=== PATIENT | male | born 1990 | race African-American/Black ===

== ENCOUNTER 2016-10-14 06:36 | Emergency (ER) | payer MEDICAID ==
[2016-10-14 06:55] VITALS: BP 136/78
--- NOTE | 2016-10-14 08:25 | ER Document Report ---
ED GI/ - General Mode of Arrival: Ambulatory Information source: Patient TRAVEL OUTSIDE OF THE [place] IN LAST 30 DAYS: No - HPI Patient complains to provider of: Feeding tube problem Onset: This morning Associated symptoms: Other - see notes above - General Chief Complaint: Displaced G-tube Stated Complaint: GTUBE REMOVAL Time Seen by Provider: 10/14/16 08:15 Notes: 26 year old male presents to the ED accompanied by his home health nurses complaining of having difficulty changing out the patient's Gtube (size 18) earlier this morning. Nurses state that there was drainage around the Gtube which was exacerbated when the patient coughed. The nurse tried to remove saline from the Gtube balloon but was unable to do so. She proceeded to add 10 mLs of saline into the balloon to check for placement, but was unable to draw anything out so they came to the ED. Nurses state that the patient has no other symptoms. Primary care: Dr. Garsia ([facility]) - Related Data Allergies/Adverse Reactions: latex [Latex] Allergy (Verified 10/14/16 06:57) Tricyclic Compounds Allergy (Verified 10/14/16 06:57) Past Medical History - General Information source: Patient - Social History Smoking Status: Never Smoker Chew tobacco use (# tins/day): No Frequency of alcohol use: None Drug Abuse: None Family History: Other - unable to obtain, Pt is nonverbal Neurological Medical History: Reports: Hx Seizures GI Medical History: Reports: Hx Gastroesophageal Reflux Disease Past Surgical History: Reports: Hx Abdominal Surgery - G tube Review of Systems - Review of Systems Constitutional: No symptoms reported EENT: No symptoms reported Cardiovascular: No symptoms reported Respiratory: No symptoms reported Gastrointestinal: See HPI, Other - Drainage around the Gtube and difficulty removing Gtube Genitourinary: No symptoms reported Male Genitourinary: No symptoms reported Musculoskeletal: No symptoms reported Skin: No symptoms reported Hematologic/Lymphatic: No symptoms reported Neurological/Psychological: No symptoms reported -: Yes All other systems reviewed and negative Physical Exam - General General appearance: Alert In distress: None - HEENT Head: Normocephalic, Atraumatic Eyes: Normal Extraocular movements intact: Yes Pupils: PERRL - Respiratory Respiratory status: No respiratory distress Breath sounds: Normal - Cardiovascular Rhythm: Regular Heart sounds: Normal auscultation - Abdominal Inspection: Other - Gtube in place with no sign of drainage surrounding the tube. Distension: No distension Tenderness: Nontender - Back Back: Normal - Extremities General upper extremity: Normal inspection, Normal ROM General lower extremity: Normal inspection, Normal ROM - Neurological Neuro grossly intact: Yes Cognition: Normal Orientation: AAOx4 [place] Coma Scale Eye Opening: Spontaneous [place] Coma Scale Verbal: Oriented [place] Coma Scale Motor: Obeys Commands [place] Coma Scale Total: 15 Speech: Normal - Psychological Associated symptoms: Normal affect, Normal mood - Skin Skin Temperature: Warm Skin Moisture: Dry Skin Color: Normal Course - Consults Dr. Sanchez Time consulted: 10:00 - Re-evaluation Re-evalutation: 10/14/16 10:01 Presents emergency department caregivers at bedside state that they can get his feeding tube out. They said that they switch it over they were trying to get out and replace it because it was leaking around the feeding site. They said they were unsuccessful at getting it to come out. They have not had problems with it in the past. Otherwise he is getting food is just leaking there is no external signs of trauma tenderness guarding rebound fever vomiting or any other concerns from that standpoint x-ray shows it to be in proper placement. I contacted the on-call surgeon Dr. munoz who recommended I put 2 additional cc in the balloon and leave it as a nurse follow-up with a primary care physician he does not think it needs to be removed at this point. I discussed reasons for ED return sooner (LISA SANDOVAL) - Vital Signs Vital signs: Temp Pulse Resp BP Pulse Ox 97.5 F 70 20 136/78 H 97 10/14/16 06:57 10/14/16 06:57 10/14/16 06:57 10/14/16 06:57 10/14/16 06:57 - Consults Dr. Sanchez Reason for consultation: 10/14/16 10:00 Patient was discussed with Dr. Sanchez who states to add 2 cc of air to the balloon, leave it in place, and have the patient follow up with primary care. (FLAVIA GARSIA) Discharge - Discharge Clinical Impression: Gastrointestinal tube present Condition: Stable Disposition: HOME, SELF-CARE Additional Instructions: I have contacted our surgeon trial consultant. He does not recommend that I remove the tube at this point. He recommends they put additional 2 cc in the balloon and leave it as is. He states have them follow-up with primary care physician if there is any other complications he may be referred to surgery but does not want me to take the tube out today. Referrals: CARMINA CARDONA MD [Primary Care Provider] - (in 2-3 days) Scribe Attestation: 10/14/16 10:00 I personally performed the services described in the documentation reviewed the documentation recorded by my scribe in my presence and it accurately and completely records my words and actions (LISA SANDOVAL) Scribe Documentation - Scribe Written by Scribe:: Richard Barton, 10/14/2016 1033 acting as scribe for :: Bulmaro
--- NOTE | 2016-10-14 08:53 | RADIOLOGY REPORT (SQ) ---
EXAM DESCRIPTION: KUB/ABDOMEN (SINGLE VIEW) COMPLETED DATE/TIME: 10/14/2016 8:42 am REASON FOR STUDY: peg tube placement COMPARISON: 09/23/2014 NUMBER OF VIEWS: One view. TECHNIQUE: Supine radiographic image of the abdomen acquired. LIMITATIONS: None. FINDINGS: BOWEL GAS PATTERN: Normal bowel gas pattern. No dilated loops. CALCIFICATIONS: No suspicious calcifications. SOFT TISSUES: No gross mass or suggestion of organomegaly. HARDWARE: None in the abdomen. BONES: Stable chronic musculoskeletal changes. No acute fracture. No worrisome bone lesions. OTHER: Percutaneous gastrostomy tube in expected location of the stomach. IMPRESSION: NO RADIOGRAPHIC EVIDENCE FOR ACUTE ABDOMINAL DISEASE. PERCUTANEOUS GASTROSTOMY TUBE ANDREW EARS TO BE APPROPRIATELY POSITIONED. TECHNICAL DOCUMENTATION: JOB ID: [id number] [employer]- All Rights Reserved
== END 2016-10-14 10:08 | disposition home or self-care (01) ==
LOC: ER 06:36
DX: K94.20 Gastrostomy complication, unspecified (principal)
CPT/HCPCS: 74000; 99282

== ENCOUNTER → 2017-05-09 | Outpatient (CLI) | payer MEDICAID | LOC: CAR 07:40 | PROVIDERS: ATTEND Family Medicine | DX: G40.909 Epilepsy, unspecified, not intractable, without status epilepticus (principal); Z79.899 Other long term (current) drug therapy | CPT/HCPCS: 80156 ==

== ENCOUNTER → 2017-11-11 | Outpatient (CLI) | payer MEDICAID ==
[2017-11-11 14:33] LABS: ABSOLUTE BASOPHILS # (AUTO) 0.1 10^3/uL (0.0-0.2); ABSOLUTE EOSINOPHILS # (AUTO) 0.8 10^3/uL (0.0-0.6); ABSOLUTE LYMPHOCYTES (AUTO) 2.9 10^3/uL (0.5-4.7); ABSOLUTE MONOCYTES (AUTO) 0.4 10^3/uL (0.1-1.4); ABSOLUTE NEUT (AUTO) 1.8 10^3/uL (1.7-8.2); BASOPHILS % (AUTO) 1.2 % (0-2); EOSINOPHILS % (AUTO) 13.3 % (0-6); HEMATOCRIT 51.2 % (37.9-51.0); HEMOGLOBIN 17.3 g/dL (13.5-17.0); LYMPHOCYTES % (AUTO) 49.1 % (13-45); MEAN CORPUSCULAR HEMOGLOBIN 31.1 pg (27.0-33.4); MEAN CORPUSCULAR HGB CONC 33.8 g/dL (32.0-36.0); MEAN CORPUSCULAR VOLUME 92 fl (80-97); PLATELET COUNT 278 10^3/uL (150-450); RED BLOOD COUNT 5.56 10^6/uL (4.35-5.55); RED CELL DISTRIBUTION WIDTH 13.1 % (11.5-14.0); SEGMENTED NEUTROPHILS % (AUTO) 30.4 % (42-78); TOTAL CELLS COUNTED % (AUTO) 100 %; WHITE BLOOD COUNT 5.9 10^3/uL (4.0-10.5)
[2017-11-11 14:41] LABS: ALANINE AMINOTRANSFERASE 64 U/L (21-72); ALBUMIN 5.2 g/dL (3.5-5.0); ALKALINE PHOSPHATASE 179 U/L (38-126); ANION GAP 15 (5-19); ASPARTATE AMINO TRANSFERASE 41 U/L (17-59); BILIRUBIN,DIRECT 0.3 mg/dL (0.0-0.4); BILIRUBIN,TOTAL 0.3 mg/dL (0.2-1.3); BLOOD UREA NITROGEN 13 mg/dL (7-20); CALCIUM 10.7 mg/dL (8.4-10.2); CARBON DIOXIDE 30 mmol/L (22-30); CHLORIDE 101 mmol/L (98-107); CHOLESTEROL 204.82 mg/dL (0-200); GLUCOSE 77 mg/dL (75-110); POTASSIUM 4.8 mmol/L (3.6-5.0); SODIUM 146.4 mmol/L (137-145); TOTAL PROTEIN 10.5 g/dL (6.3-8.2); TRIGLYCERIDES 252 mg/dL (<150)
[2017-11-11 14:52] LABS: DIRECT LDL 43 mg/dL (<100)
[2017-11-11 14:56] LABS: VLDL CHOLESTEROL 50.4 mg/dL (10-31)
== END ==
LOC: CAR 12:43
PROVIDERS: ATTEND Family Medicine
DX: K21.9 Gastro-esophageal reflux disease without esophagitis (principal); K59.00 Constipation, unspecified; Z00.00 Encounter for general adult medical examination without abnormal findings; E55.9 Vitamin D deficiency, unspecified; Z79.899 Other long term (current) drug therapy; G40.909 Epilepsy, unspecified, not intractable, without status epilepticus
CPT/HCPCS: 80053; 80061; 80156; 82306; 84443; 85025

== ENCOUNTER → 2018-04-08 | Outpatient (CLI) | payer MEDICAID ==
[2018-04-08 13:15] LABS: ALANINE AMINOTRANSFERASE 63 U/L (21-72); ALBUMIN 4.1 g/dL (3.5-5.0); ALKALINE PHOSPHATASE 163 U/L (38-126); ANION GAP 11 (5-19); ASPARTATE AMINO TRANSFERASE 47 U/L (17-59); BILIRUBIN,DIRECT 0.3 mg/dL (0.0-0.4); BILIRUBIN,TOTAL 0.3 mg/dL (0.2-1.3); BLOOD UREA NITROGEN 9 mg/dL (7-20); CALCIUM 9.3 mg/dL (8.4-10.2); CARBON DIOXIDE 26 mmol/L (22-30); CHLORIDE 104 mmol/L (98-107); GLUCOSE 103 mg/dL (75-110); POTASSIUM 4.1 mmol/L (3.6-5.0); SODIUM 141.2 mmol/L (137-145)
== END ==
LOC: CAR 11:59
PROVIDERS: ATTEND Family Medicine
DX: K21.0 Gastro-esophageal reflux disease with esophagitis (principal); K59.00 Constipation, unspecified; G40.909 Epilepsy, unspecified, not intractable, without status epilepticus; Z79.899 Other long term (current) drug therapy
CPT/HCPCS: 80053

== ENCOUNTER → 2018-05-04 | Outpatient (CLI) | payer MEDICAID ==
[2018-05-04 14:55] LABS: ABSOLUTE EOSINOPHILS # (AUTO) 0.4 10^3/uL (0.0-0.6); ABSOLUTE LYMPHOCYTES (AUTO) 3.1 10^3/uL (0.5-4.7); ABSOLUTE MONOCYTES (AUTO) 0.6 10^3/uL (0.1-1.4); ABSOLUTE NEUT (AUTO) 3.4 10^3/uL (1.7-8.2); BASOPHILS % (AUTO) 0.6 % (0-2); EOSINOPHILS % (AUTO) 5.8 % (0-6); HEMATOCRIT 45.2 % (37.9-51.0); HEMOGLOBIN 15.4 g/dL (13.5-17.0); MEAN CORPUSCULAR HEMOGLOBIN 31.3 pg (27.0-33.4); MEAN CORPUSCULAR HGB CONC 34.1 g/dL (32.0-36.0); MEAN CORPUSCULAR VOLUME 92 fl (80-97); MONOCYTES % (AUTO) 7.5 % (3-13); PLATELET COUNT 325 10^3/uL (150-450); RED BLOOD COUNT 4.92 10^6/uL (4.35-5.55); RED CELL DISTRIBUTION WIDTH 12.8 % (11.5-14.0); SEGMENTED NEUTROPHILS % (AUTO) 45.1 % (42-78); TOTAL CELLS COUNTED % (AUTO) 100 %; WHITE BLOOD COUNT 7.5 10^3/uL (4.0-10.5)
== END ==
LOC: CAR 12:15
PROVIDERS: ATTEND Specialist
DX: G40.909 Epilepsy, unspecified, not intractable, without status epilepticus (principal); Z79.899 Other long term (current) drug therapy
CPT/HCPCS: 80156; 84295; 85025

== ENCOUNTER → 2019-01-12 | Outpatient (CLI) | payer MEDICAID | LOC: OD 11:46 | PROVIDERS: ATTEND Family Medicine | DX: R73.09 Other abnormal glucose (principal); Z53.8 Procedure and treatment not carried out for other reasons ==

== ENCOUNTER 2019-08-13 19:58 | Emergency (ER) | payer MEDICAID ==
--- NOTE | 2019-08-13 23:15 | RADIOLOGY REPORT (SQ) ---
CLINICAL INDICATION: cough. TECHNIQUE: A single portable AP view was obtained of the chest at 2255 hours. Additional repeat image COMPARISON: October 03, 2014. FINDINGS: The cardiomediastinal silhouette is enlarged but stable. The lungs are grossly clear. No evidence of effusion or pneumothorax. Chronic parenchymal lung change. Scoliosis.. IMPRESSION: No evidence of active intrathoracic disease. No adverse change when accounting for lower volume
--- NOTE | 2019-08-13 23:54 | ER Document Report ---
Entered by LORNA ALTAMIRANO SCRIBE 08/13/19 2218 Acting as scribe for:MISHA MARADIAGA IV, MD ED General - General Chief Complaint: Other Stated Complaint: UPPER RESPIRATORY SYMPTOMS,POSSIBLE EXPOSSURE Primary Care Provider: REJI LOVELL MD [Primary Care Provider] - Follow up as needed Mode of Arrival: Wheelchair Information source: Legal Guardian - Caregiver, Emergency Med Personnel Notes: This 28 year old male patient presents to the ED today accompanied by his caregiver with complaints of possible COVID-19 exposure. Caregiver states that one of the staff members that works in the house where the patient resides was recently tested for the virus. Caregiver reports that the patient has chronic respiratory issues that are worse with seasonal allergies, but denies any new or worsening respiratory symptoms other than chest congestion and sputum production. Caregiver states that the patient's PCP, Dr. Lovell, was initially going to prescribe Zyrtec and order a chest x-ray, flu swab, and CBC; however, he advised the patient to come to the ED to get tested for COVID-19 once he was made aware of the possible exposure. TRAVEL OUTSIDE OF THE [place] IN LAST 30 DAYS: No - Related Data Allergies/Adverse Reactions: latex [Latex] Allergy (Verified 10/14/16 06:57) Tricyclic Compounds Allergy (Verified 10/14/16 06:57) Home Medications: Tegretol. Zonegran. Zantac. Vit D. Xalatan. Cosopt PRN. Dimaphen PRN. Keppra. Baclofen. Miralax. Motrin PRN. Duoneb PRN Past Medical History - General Information source: Legal Guardian - Caregiver, Emergency Med Personnel, [facility] Records - Social History Smoking Status: Never Smoker Cigarette use (# per day): No Chew tobacco use (# tins/day): No Smoking Education Provided: No Frequency of alcohol use: None Drug Abuse: None Family History: Reviewed & Not Pertinent Patient has suicidal ideation: No Patient has homicidal ideation: No Neurological Medical History: Reports: Hx Seizures GI Medical History: Reports: Hx Gastroesophageal Reflux Disease Past Surgical History: Reports: Hx Abdominal Surgery - G tube Review of Systems - Review of Systems Constitutional: No symptoms reported EENT: No symptoms reported Cardiovascular: No symptoms reported Respiratory: See HPI, Sputum, Other - Congestion Gastrointestinal: No symptoms reported Genitourinary: No symptoms reported Male Genitourinary: No symptoms reported Musculoskeletal: No symptoms reported Skin: No symptoms reported Hematologic/Lymphatic: No symptoms reported Neurological/Psychological: No symptoms reported -: Yes All other systems reviewed and negative Physical Exam - Vital signs Vitals: Temp Pulse Resp BP Pulse Ox 99.0 F 87 20 109/87 H 97 08/13/19 20:38 08/13/19 20:38 08/13/19 20:38 08/13/19 20:38 08/13/19 20:38 - General General appearance: Alert, Other - Contractions to upper extremeties. Wheelchair bound. Appropriate to caregiver. In distress: None - HEENT Head: Normocephalic, Atraumatic Eyes: Normal Pupils: PERRL - Respiratory Respiratory status: No respiratory distress Chest status: Nontender Breath sounds: Productive cough - Clear sputum, Rhonchi - Scattered Chest palpation: Normal - Cardiovascular Rhythm: Regular Heart sounds: Normal auscultation Murmur: No Friction rub: No Gallop: None auscultated - Abdominal Inspection: Normal Distension: No distension Bowel sounds: Normal Tenderness: Nontender - Abdomen soft Organomegaly: No organomegaly - Back Back: Normal, Nontender - Extremities General upper extremity: Normal inspection General lower extremity: Normal inspection - Neurological Neuro grossly intact: Yes - Psychological Associated symptoms: Normal affect, Normal mood - Skin Skin Temperature: Warm Skin Moisture: Dry Skin Color: Normal Course - Re-evaluation Re-evalutation: 08/14/19 00:27 Results of ED MSE discussed with patient's caregiver.COVID 19 testing, when to expect results, quarantine, discussed with patient's caregiver. All questions were answered prior to discharge. - Vital Signs Vital signs: Temp Pulse Resp BP Pulse Ox 99.0 F 87 20 109/87 H 97 08/13/19 20:38 08/13/19 20:38 08/13/19 20:38 08/13/19 20:38 08/13/19 20:38 - Laboratory Result Diagrams: 08/13/19 23:31 Laboratory results interpreted by me: 08/13/19 23:31 Lymph % (Auto) 52.7 H Eos % (Auto) 7.9 H Seg Neutrophils % 32.2 L - Diagnostic Test Radiology reviewed: Reports reviewed Discharge - Discharge Clinical Impression: Acute respiratory infection Condition: Good Disposition: HOME, SELF-CARE Additional Instructions: Return to the Emergency Department without delay if any worse. HOME CARE INSTRUCTIONS & INFORMATION: Thank you for choosing us for your medical needs. We hope you're satisfied with the care you received. After you leave, you must properly care for your problem and, at the same time, observe its progress. Any condition can change. Some illnesses can change rapidly over hours or days. If your condition worsens, return to the Emergency Department or see your physician promptly. ABOUT YOUR X-RAYS AND EKG'S: If you had an EKG or X-rays taken, they have been read by the Emergency Physician. The X-rays and EKG's will also be read by a Radiologist or Framing Inspector within 24 hours. If discrepancies are noted, you will be notified by telephone. Please be certain the ED has a correct telephone number & address where you can be reached. Also, realize that some fractures or abnormalities do not show up on initial X-rays. If your symptoms continue, see your physician. ABOUT YOUR LABORATORY TEST: If you had laboratory tests, the results have been reviewed by the Emergency Physician. Some test results (for example cultures) may not be available for several days. You will be contacted if any test result shows you need additional treatment. Please be certain the ED has a correct telephone number and address where you can be reached. ABOUT YOUR MEDICATIONS: You will receive instructions on how to take your medicine on the prescription label you receive. Additional information may be provided by the Pharmacy. If you have questions afterwards, call the ED for clarification or further instructions. Some prescribed medications may cause drowsiness. Do not perform tasks such as driving a car or operating machinery without consulting your Pharmacist. If you feel you need a refill of pain medication, your condition will need re-evaluation. Please do not call for a refill of any medication. ABOUT YOUR SIGNATURE: Signature of this document acknowledges to followin. Understanding that you received emergency treatment and that you may be r eleased before al medical problems are known or treated. Please be certain the ED has a correct phone number & address where you can be reached. 2. Acknowledgement that you will arrange for follow-up care as recommended. 3. Authorization for the Emergency Physician to provide information to your follow-up Physician in order to maximize your care. AT ANY TIME, IF YOUR SYMPTOMS CHANGE SIGNIFICANTLY OR WORSEN OR YOU DEVELOP NEW SYMPTOMS, RETURN TO THE EMERGENCY DEPARTMENT IMMEDIATELY FOR RE-EVALUATION. OUR GOAL IS TO PROVIDE EXCELLENT MEDICAL CARE! WE HOPE THAT WE HAVE MET YOUR EXPECTATIONS DURING YOUR EMERGENCY DEPARTMENT VISIT AND THAT YOU FEEL YOU HAVE RECEIVED EXCELLENT CARE! Referrals: REJI LOVELL MD [Primary Care Provider] - Follow up as needed I personally performed the services described in the documentation, reviewed and edited the documentation which was dictated to the scribe in my presence, and it accurately records my words and actions.
[2019-08-13 23:56] LABS: ABSOLUTE BASOPHILS # (AUTO) 0.1 10^3/uL (0.0-0.2); ABSOLUTE EOSINOPHILS # (AUTO) 0.5 10^3/uL (0.0-0.6); ABSOLUTE LYMPHOCYTES (AUTO) 3.6 10^3/uL (0.5-4.7); ABSOLUTE MONOCYTES (AUTO) 0.4 10^3/uL (0.1-1.4); ABSOLUTE NEUT (AUTO) 2.2 10^3/uL (1.7-8.2); BASOPHILS % (AUTO) 1.3 % (0-2); EOSINOPHILS % (AUTO) 7.9 % (0-6); HEMATOCRIT 45.7 % (37.9-51.0); HEMOGLOBIN 16.1 g/dL (13.5-17.0); LYMPHOCYTES % (AUTO) 52.7 % (13-45); MEAN CORPUSCULAR HEMOGLOBIN 32.2 pg (27.0-33.4); MEAN CORPUSCULAR HGB CONC 35.2 g/dL (32.0-36.0); MEAN CORPUSCULAR VOLUME 91 fl (80-97); MONOCYTES % (AUTO) 5.9 % (3-13); PLATELET COUNT 324 10^3/uL (150-450); RED BLOOD COUNT 5.01 10^6/uL (4.35-5.55); RED CELL DISTRIBUTION WIDTH 12.9 % (11.5-14.0); SEGMENTED NEUTROPHILS % (AUTO) 32.2 % (42-78); TOTAL CELLS COUNTED % (AUTO) 100 %; WHITE BLOOD COUNT 6.9 10^3/uL (4.0-10.5)
[2019-08-14 00:13] LABS: A TYPE INFLUENZA AG NEGATIVE (NEGATIVE); B INFLUENZA AG NEGATIVE (NEGATIVE)
[2019-08-14 00:55] VITALS: BP 145/94
== END 2019-08-14 00:57 | disposition home or self-care (01) ==
LOC: ER 19:58
DX: J22 Unspecified acute lower respiratory infection (principal); J30.2 Other seasonal allergic rhinitis; R05 Cough; R56.9 Unspecified convulsions; K21.9 Gastro-esophageal reflux disease without esophagitis; Z79.899 Other long term (current) drug therapy; Z91.040 Latex allergy status; Z20.828 Contact with and (suspected) exposure to other viral communicable diseases
CPT/HCPCS: 36415; 71045; 85025; 87635; 87804; 99283

== ENCOUNTER → 2019-10-25 | Outpatient (CLI) | payer MEDICAID ==
--- NOTE | 2019-10-25 17:51 | RADIOLOGY REPORT (SQ) ---
EXAM DESCRIPTION: CHEST SINGLE VIEW IMAGES COMPLETED DATE/TIME: 10/25/2019 4:13 pm REASON FOR STUDY: COUGH COMPARISON: 08/13/2019 EXAM PARAMETERS: NUMBER OF VIEWS: One view. TECHNIQUE: Single frontal radiographic view of the chest acquired. RADIATION DOSE: NA LIMITATIONS: Patient is rotated and scoliotic. FINDINGS: LUNGS AND PLEURA: Interval development of near complete consolidation in the left lung and patchy areas of consolidation in the right lung. Probable small left effusion. No definite pneumot horax. MEDIASTINUM AND HILAR STRUCTURES: No masses. Contour normal. HEART AND VASCULAR STRUCTURES: Moderate cardiomegaly. Indistinctness of the pulmonary vasculature an d cephalization of vessels. BONES: No acute findings. HARDWARE: None in the chest. OTHER: No other significant finding. IMPRESSION: 1. Interval development of diffuse consolidation throughout the left lung and patchy areas of consoli dation in the right lung. There is at least moderate pulmonary edema. Probable superimposed pneumon ia. TECHNICAL DOCUMENTATION: JOB ID: [id number] 2010 [employer]- All Rights Reserved Reading location - IP/workstation name: [email or web address]
== END ==
LOC: RAD 16:47
PROVIDERS: ATTEND Family Medicine
DX: J81.1 Chronic pulmonary edema (principal); I51.7 Cardiomegaly; R05 Cough
CPT/HCPCS: 71045

== ENCOUNTER → 2019-11-03 | Outpatient (CLI) | payer MEDICAID ==
--- NOTE | 2019-11-03 15:57 | RADIOLOGY REPORT (SQ) ---
EXAM DESCRIPTION: CHEST SINGLE VIEW IMAGES COMPLETED DATE/TIME: 11/03/2019 2:31 pm REASON FOR STUDY: PNEUMONIA, UNSPECIFIED ORGANISM COMPARISON: 10/25/2019 EXAM PARAMETERS: NUMBER OF VIEWS: One view. TECHNIQUE: Single frontal radiographic view of the chest acquired. RADIATION DOSE: NA LIMITATIONS: None. FINDINGS: LUNGS AND PLEURA: No opacities, masses or pneumothorax. No pleural effusion. MEDIASTINUM AND HILAR STRUCTURES: No masses. Contour normal. HEART AND VASCULAR STRUCTURES: Cardiomegaly. No evidence for failure. BONES: Marked S shaped scoliosis thoracolumbar spine. HARDWARE: None in the chest. OTHER: No other significant finding. IMPRESSION: 1. Since the previous examination dated 10/25/2019, interval resolution of the diffuse co nsolidation in the left lung and patchy areas of consolidation in the right lung. 2. Pulmonary edema has resolved. TECHNICAL DOCUMENTATION: JOB ID: [id number] 2010 [employer]- All Rights Reserved Reading location - IP/workstation name: [email or web address]
== END ==
LOC: OD 14:15
PROVIDERS: ATTEND Family Medicine
DX: J18.9 Pneumonia, unspecified organism (principal)
CPT/HCPCS: 71045

== ENCOUNTER → 2019-11-30 | Outpatient (CLI) | payer MEDICAID ==
--- NOTE | 2019-11-30 15:55 | RADIOLOGY REPORT (SQ) ---
EXAM DESCRIPTION: CHEST SINGLE VIEW IMAGES COMPLETED DATE/TIME: 11/30/2019 3:06 pm REASON FOR STUDY: PNEUMONIA, UNSPECIFIED ORGANISM COMPARISON: 11/03/2019 EXAM PARAMETERS: NUMBER OF VIEWS: One view. TECHNIQUE: Single frontal radiographic view of the chest acquired. RADIATION DOSE: NA LIMITATIONS: None. FINDINGS: LUNGS AND PLEURA: Chronic interstitial pattern. Chronic elevation left diaphragm. No foc al consolidation. MEDIASTINUM AND HILAR STRUCTURES: Stable. HEART AND VASCULAR STRUCTURES: Stable heart size. Normal vasculature. BONES: No acute findings. HARDWARE: None in the chest. OTHER: No other significant finding. IMPRESSION: NO ACUTE RADIOGRAPHIC FINDING IN THE CHEST. TECHNICAL DOCUMENTATION: JOB ID: [id number] 2010 [employer]- All Rights Reserved Reading location - IP/workstation name: [email or web address]
== END ==
LOC: OD 14:44
PROVIDERS: ATTEND Family Medicine
DX: J18.9 Pneumonia, unspecified organism (principal); I51.7 Cardiomegaly
CPT/HCPCS: 71045

== ENCOUNTER → 2020-01-25 | Outpatient (CLI) | payer MEDICAID ==
[2020-01-25 14:49] LABS: ABSOLUTE EOSINOPHILS # (AUTO) 0.2 10^3/uL (0.0-0.6); ABSOLUTE LYMPHOCYTES (AUTO) 2.1 10^3/uL (0.5-4.7); ABSOLUTE MONOCYTES (AUTO) 0.7 10^3/uL (0.1-1.4); ABSOLUTE NEUT (AUTO) 7.2 10^3/uL (1.7-8.2); BASOPHILS % (AUTO) 0.2 % (0-2); EOSINOPHILS % (AUTO) 2.3 % (0-6); HEMOGLOBIN 14.7 g/dL (13.5-17.0); LYMPHOCYTES % (AUTO) 20.9 % (13-45); MEAN CORPUSCULAR HEMOGLOBIN 32.2 pg (27.0-33.4); MEAN CORPUSCULAR VOLUME 92 fl (80-97); MONOCYTES % (AUTO) 6.9 % (3-13); PLATELET COUNT 294 10^3/uL (150-450); RED BLOOD COUNT 4.56 10^6/uL (4.35-5.55); SEGMENTED NEUTROPHILS % (AUTO) 69.7 % (42-78); TOTAL CELLS COUNTED % (AUTO) 100 %; WHITE BLOOD COUNT 10.3 10^3/uL (4.0-10.5)
--- NOTE | 2020-01-25 15:04 | RADIOLOGY REPORT (SQ) ---
EXAM DESCRIPTION: CHEST SINGLE VIEW IMAGES COMPLETED DATE/TIME: 01/25/2020 2:18 pm REASON FOR STUDY: COUGH; FEVER COMPARISON: 11/30/2019 EXAM PARAMETERS: NUMBER OF VIEWS: One view. TECHNIQUE: Single frontal radiographic view of the chest acquired. RADIATION DOSE: NA LIMITATIONS: None. FINDINGS: LUNGS AND PLEURA: Chronic interstitial changes. No acute infiltrate or pleural effusion o r mass. Elevated left hemidiaphragm. MEDIASTINUM AND HILAR STRUCTURES: No masses. Contour normal. HEART AND VASCULAR STRUCTURES: Heart normal in size. Normal vasculature. BONES: Scoliosis. HARDWARE: None in the chest. OTHER: No other significant finding. IMPRESSION: Chronic lung changes with no acute cardiopulmonary findings. Scoliosis. TECHNICAL DOCUMENTATION: JOB ID: [id number] 2010 [employer]- All Rights Reserved Reading location - IP/workstation name: [email or web address]
[2020-01-25 15:17] LABS: ANION GAP 14 (5-19); BLOOD UREA NITROGEN 10 mg/dL (7-20); CALCIUM 9.4 mg/dL (8.4-10.2); CARBON DIOXIDE 26 mmol/L (22-30); CHLORIDE 98 mmol/L (98-107); GLUCOSE 169 mg/dL (75-110)
== END ==
LOC: CAR 13:46
PROVIDERS: ATTEND Family Medicine
DX: R05 Cough (principal); R50.9 Fever, unspecified
CPT/HCPCS: 36415; 71045; 80048; 85025; 87040